=== PATIENT | female | born 1975 | race Caucasian/White ===

== ENCOUNTER 2021-06-24 16:30 | Emergency (ER) | payer BC, SELFPAY ==
[2021-06-24 17:26] VITALS: BP 148/108; PULSE 86; RESP 16; TEMP 36.9; O2SAT 98; BMI 17.9
[2021-06-24 17:45] LABS: MANUAL DIFF FLAG NO
[2021-06-24 17:47] LABS: Basophils Percent Auto 0.4 % (0-2); Eosinophils Absolute Auto 0.1 X10*3/uL (0.0-0.4); Eosinophils Percent Auto 0.8 % (0-4); Hematocrit 44.6 % (37.0-47.0); Hemoglobin 15.2 g/dl (12.0-16.0); Imm Gran Abs Auto 0.03 X10*3/uL (0.00-0.03); Imm Gran Pct Auto 0.3 % (0.0-0.4); Lymphocytes Absolute Auto 2.2 X10*3/uL (1.2-4.9); Lymphocytes Percent Auto 21.3 % (20-40); Mean Corpuscular HGB Conc 34.1 g/dl (31.0-35.0); Mean Corpuscular Hemoglobin 29.6 pg (27.0-33.0); Mean Corpuscular Volume 86.9 fL (80.0-98.0); Mean Platelet Volume 11.6 fL (9.4-12.3); Monocytes Absolute Auto 0.7 X10*3/uL (0.1-1.2); Monocytes Percent Auto 6.8 % (2-11); Neutrophils Absolute Auto 7.2 x10*3/uL (2.0-8.3); Neutrophils Percent Auto 70.4 % (45-73); Platelet Count 187 X10*3/uL (160-400); Red Blood Count 5.13 X10*6/uL (4.20-5.50); Red Cell Distribution Width 12.8 % (11.0-16.0); White Blood Count 10.2 X10*3/uL (4.8-10.8)
[2021-06-24 17:49] LABS: Appearance Urine CLEAR; Color Urine STRAW; Glucose Urine UA NEG (NEG); Leukocyte Esterase Urine NEG (NEG); Nitrite Urine NEG (NEG); PH 6.5 (5.0-8.0); Specific Gravity - Urine <= 1.005 (1.005-1.025); Urine Blood NEG (NEG); Urine Ketones NEG (NEG); Urine Protein NEG (NEG-TRACE)
[2021-06-24 18:04] LABS: Anion Gap 11 (12-20); Blood Urea Nitrogen 9 mg/dL (9-16); Calcium 9.7 mg/dL (8.4-10.2); Carbon Dioxide 24 mmol/L (22-29); Chloride 108 mmol/L (96-108); Creatinine Clr Calc Pharmacy 64.9; Estimated Glomerular Filt Rate > 60; Glucose Random 107 mg/dL (60-115); Potassium 3.8 mmol/L (3.3-5.1); Sodium 139 mmol/L (135-145)
[2021-06-24 18:20] LABS: Bacteria Urine 1+ /LPF; RBC Urine 0 /HPF (0); Squamous Epithelial Cell Urine 2+ /LPF; WBC Urine 0 /HPF (0-4)
--- NOTE | 2021-06-24 20:14 | ED.DIZZY ---
HPI - Dizziness General Chief Complaint: Dizziness Stated Complaint: light headed Time Seen by Provider: 06/24/21 20:14 Source: patient Mode of arrival: ambulatory Limitations: no limitations History of Present Illness HPI Narrative: Patient complaining of dizziness since morning worse when turning her head to the left side history with nausea no vomiting was light off balance also felt dull pain in the left ear no fever no chills patient does have history of dizziness very mild in the past but not like this. No headache no fever no chills Related Data Previous Rx's Medication Instructions Recorded meclizine 25 mg tablet 25 mg PO TID PRN #20 tab 06/24/21 Allergies Allergy/AdvReac Type Severity Reaction Status Date / Time ceftriaxone [From ROCEPHIN] Allergy Intermediate ANAPHYLAXIS Verified 06/24/21 20:31 Review of Systems Review of Systems: Yes all other systems are reviewed and are negative [facility] Social History Social History Advance Directives: No Advance Directives Information Provided: Yes Patient : No Physical Exam Vital Signs: Vital Signs: Last Vital Signs Temp 99 F 06/24/21 20:32 Pulse 76 06/24/21 20:32 Resp 18 06/24/21 20:32 BP 129/80 06/24/21 20:32 Pulse Ox 97 06/24/21 20:32 BMI result Body Mass Index 17.9 Appearance: Alert. Oriented X3. No acute distress. Eyes: PERRLA, + Nystagmus with fast movement to the right ENT: Pharynx normal. Oral Mucosa moist Neck: Normal inspection. Neck supple. CVS: Normal heart rate and rhythm. Pulses normal. Respiratory: No respiratory distress. Equal air entry bilateral, Abdomen: Soft and nontender. Bowel sounds are present, Skin: Skin warm and dry. Normal skin color. Normal skin turgor. Extremities: No lower extremity edema. No calf tenderness Neuro: Oriented X 3. No motor deficit. No sensory deficit.No cerebellar signs , cranial nerves II-XII intact MDM - Dizziness MDM Narrative Medical decision making narrative: Patient with vertigo clinically peripheral in etiology patient improved on meclizine lab workup stable will discharge patient home on meclizine with precautions Lab Data Attestation: I reviewed the patient's lab results. Result diagrams: 06/24/21 17:39 06/24/21 17:39 Labs: Lab Results 06/24/21 06/24/21 06/24/21 Range/Units 17:39 17:39 17:43 WBC 10.2 (4.8-10.8) X10*3/uL RBC 5.13 (4.20-5.50) X10*6/uL Hgb 15.2 (12.0-16.0) g/dl Hct 44.6 (37.0-47.0) % MCV 86.9 (80.0-98.0) fL MCH 29.6 (27.0-33.0) pg MCHC 34.1 (31.0-35.0) g/dl RDW 12.8 (11.0-16.0) % Plt Count 187 (160-400) X10*3/uL MPV 11.6 (9.4-12.3) fL Immature Gran % (Auto) 0.3 (0.0-0.4) % Neut % (Auto) 70.4 (45-73) % Lymph % (Auto) 21.3 (20-40) % Dukes % (Auto) 6.8 (2-11) % Eos % (Auto) 0.8 (0-4) % Baso % (Auto) 0.4 (0-2) % Lymph # (Auto) 2.2 (1.2-4.9) X10*3/uL Dukes # (Auto) 0.7 (0.1-1.2) X10*3/uL Eos # (Auto) 0.1 (0.0-0.4) X10*3/uL Baso # (Auto) 0.0 (0.0-0.2) X10*3/uL Abs Immat Gran (auto) 0.03 (0.00-0.03) X10*3/uL Absolute Neuts (auto) 7.2 (2.0-8.3) x10*3/uL Absolute Nucleated RBC 0.000 (0.0-0.012) X10*3/uL Nucleated RBC % (auto) 0.0 (0.0-0.2) /100WBC Sodium 139 (135-145) mmol/L Potassium 3.8 (3.3-5.1) mmol/L Chloride 108 (96-108) mmol/L Carbon Dioxide 24 (22-29) mmol/L Anion Gap 11 L (12-20) BUN 9 (9-16) mg/dL Creatinine 0.82 (0.5-1.4) mg/dL Estim Creat Clear Calc 64.9 Estimated GFR > 60 Random Glucose 107 (60-115) mg/dL Calcium 9.7 (8.4-10.2) mg/dL Urine Color STRAW Urine Appearance CLEAR Urine pH 6.5 (5.0-8.0) Ur Specific Lincoln <= 1.005 (1.005-1.025) Urine Protein NEG (NEG-TRACE) MG/DL Urine Glucose (UA) NEG (NEG) MG/DL Urine Ketones NEG (NEG) MG/DL Urine Blood NEG (NEG) Urine Nitrite NEG (NEG) Ur Leukocyte Esterase NEG (NEG) Urine RBC 0 (0) /HPF Urine WBC 0 (0-4) /HPF Ur Squamous Epith Cells 2+ /LPF Urine Bacteria 1+ /LPF Discharge Plan Discharge Clinical Impression: Benign paroxysmal positional vertigo Qualifiers: Laterality: left Qualified Code(s): H81.12 - Benign paroxysmal vertigo, left ear Patient Disposition: Home, Self-Care Instructions: Benign Paroxysmal Positional Vertigo (ED) Additional Instructions: Rest at home caution while walking/driving Take medication as prescribed every 8 hours as needed for dizziness Prescriptions: New meclizine 25 mg tablet 25 mg PO TID PRN (Reason: dizziness) Qty: 20 RF: 0 Interventions: ED Discharge Assessment Last Done: 06/24/21 21:43 Discharge Date/Time: 06/24/21 21:44
[2021-06-24 20:32] VITALS: BP 129/80; PULSE 76; RESP 18; TEMP 37.2; O2SAT 97
[2021-06-24] MEDS: Meclizine HCl 25 MG TABLET 50 MG PO (20:37)
== END 2021-06-24 21:44 | disposition home or self-care (01) ==
PROVIDERS: Emergency Medicine; Emergency Provider Internal Medicine
DX: H81.12 Benign paroxysmal vertigo, left ear (principal)
CPT/HCPCS: 36415; 80048; 81001; 85025; 99283; 99284

== ENCOUNTER 2022-05-02 10:03 | Emergency (ER) | payer BC, SELFPAY ==
[2022-05-02 10:07] VITALS: BP 148/89; PULSE 94; RESP 18; TEMP 36.6; O2SAT 97
== END 2022-05-02 12:16 | disposition left against medical advice (07) ==
PROVIDERS: Emergency Provider Emergency Medicine
DX: R00.2 Palpitations (principal); R07.9 Chest pain, unspecified
CPT/HCPCS: 99281

== ENCOUNTER 2024-03-29 10:29 | Emergency (ER) | payer OTHER, SELFPAY ==
--- NOTE | ~2024-03-29 | CT_ITS ---
EXAMINATION: CT HEAD WITHOUT CONTRAST/STROKE ALERT CLINICAL INFORMATION: Ataxia, bilateral blurring of vision for 1 hour. COMPARISON: None available. TECHNIQUE: Contiguous axial imaging was performed from the skull-base to vertex without intravenous administration of contrast. This CT examination was performed using dose optimization techniques as appropriate, variously including the following: *Automated exposure control *Adjustment of mA and/or kV according to patient size (this includes techniques or standardized protocols for targeted exams where dose is matched to indication/reason for exam; i.e. extremities or head) *Use of iterative reconstruction technique DLP: 733 mGy-cm FINDINGS: Ventricles, sulci and cisterns are normal. There is no midline shift, no abnormal intra- or extra- axial fluid accumulation. Painter and white matter differentiation is normal. Bone window images show no evidence of skull fracture. CT/CT head for stroke IMPRESSION: 1. Normal CT scan of brain. 2. No intracranial hemorrhage or skull fracture is seen. 3. No evidence of space occupying lesion could be found. 4. The current plain CT scan of the brain shows no diagnostic evidence of acute cerebral infarction. This critical result was discussed with Dr. Madiha Jackson on 03/29/2024 at 1156 hours and it was ascertained that the content and urgency of this report was understood at the time of direct communication. Electronically signed by: Ekta Zhang MD 03/29/2024 11:58 AM EDT
--- NOTE | ~2024-03-29 | CT_ITS ---
EXAMINATION: CTA NECK WITH CONTRAST (STROKE) CTA BRAIN WITH CONTRAST (STROKE) CLINICAL INFORMATION: Suspect acute stroke. Assess for major vessel occlusion. Please call report. COMPARISON: None available. TECHNIQUE: CTA of the head and neck was performed in the axial plane from the mediastinum to the skull vertex using 70 mL Omnipaque 350 intravenous contrast. Delayed postcontrast imaging of the brain was obtained. Additional reformatted multiplanar images including maximum intensity projection MIP images are generated on the CT workstation. This CT examination was performed using dose optimization techniques as appropriate, variously including the following: *Automated exposure control *Adjustment of mA and/or kV according to patient size (this includes techniques or standardized protocols for targeted exams where dose is matched to indication/reason for exam; i.e. extremities or head) *Use of iterative reconstruction technique DLP: 1494 mGy-cm FINDINGS: The degree of stenosis determined by criteria similar to NASCET. Brain: The brain parenchyma is normal in morphology. Painter-white matter interface is preserved. There is no acute territorial infarct or regional oligemia. No extra-axial fluid collections, space-occupying process, mass effect or pathologic intracranial enhancement are identified. The ventricular system and subarachnoid spaces are within normal limits without hydrocephalus. There is opacification of the major dural venous sinuses with hypoplasia of the right transverse and sigmoid sinus within the limitations of an arterial technique. The calvarium is intact. The visualized airspaces are grossly unopacified. Chest CTA: The thoracic aortic arch is normal in caliber with a 2-vessel arch configuration normal variant of a bovine origin of the left common carotid artery. There is somewhat limited visualization of the brachiocephalic vessels particularly on the right related to dense contrast material in the right brachiocephalic and subclavian veins. Within these limitations, the brachiocephalic vessels are widely patent. The vertebral arteries are codominant and widely patent at their origins. Left subclavian artery is patent and normal in caliber. Proximal right subclavian artery is patent and normal in caliber. Distal right subclavian artery is obscured. Neck CTA: The vertebral arteries are codominant and demonstrate normal caliber with smooth contours throughout the neck. Both common carotid arteries, carotid bifurcations, internal and external carotid arteries are smoothly contoured, normal in caliber with no significant plaque formation, significant focal stenosis or segmental occlusion. Brain CTA: The intracranial ICAs are patent and normal in caliber. The A1 segments are patent with the right being dominant. The anterior communicating artery is not well visualized suspect an azygos anterior cerebral artery, normal variant. The M1 segments, MCA bifurcations and M2 branches are patent and normal in caliber. The intradural vertebral arteries are patent, codominant, smoothly contoured and normal in caliber. The posterior inferior cerebellar arteries are visualized bilaterally. The superior cerebellar and posterior cerebral arteries are patent and normal in caliber. The posterior communicating arteries are not clearly visualized. Neck/chest nonvascular images: No acute process. Skeletal: Bony structures appear grossly intact. Left-sided TMJ arthropathy noted. CT/CT angio head neck stroke IMPRESSION: 1. No acute intracranial process. No evidence for acute territorial infarct, large vessel occlusion, significant focal stenosis, mass lesion or pathologic intracranial enhancement. 2. The distal right subclavian artery is not well visualized but the proximal right subclavian artery is widely patent. 3. Unremarkable delayed contrast-enhanced CT of the brain. 4. Incidental note is made of a normal variant azygos anterior cerebral artery, normal variant of a bovine origin of the left common carotid artery and probable hypoplastic right transverse and sigmoid sinus. The above findings were conveyed directly to Kristy Sol NP at 12:38 PM on 03/29/2024. Electronically signed by: Andrea Vizcaino MD 03/29/2024 12:49 PM EDT RP
[2024-03-29 10:35] VITALS: BP 134/86; PULSE 85; RESP 16; TEMP 37; O2SAT 98; BMI 31.0
--- NOTE | 2024-03-29 10:46 | PC.NURSE ---
Bunny ALMONTE in triage to evaluate pt, NIHSS 0.
[2024-03-29 10:51] VITALS: BP 149/81; PULSE 83; RESP 15; TEMP 36.9; O2SAT 99
--- NOTE | 2024-03-29 10:58 | ED.NEUROSD ---
HPI - Neuro Symptoms/Deficit General Chief Complaint: Neuro Symptoms/Deficit Stated Complaint: Blurred vision/Off balance Time Seen by Provider: 03/29/24 10:58 Source: patient and family Mode of arrival: ambulatory Limitations: no limitations History of Present Illness HPI Narrative: Patient is a 48 who presents to the emergency department for evaluation. She reports that for the past few months she has been experiencing a diffuse fullness in her head with intermittent pain to her left ear. She reports that she typically has to block both of her nostrils and blow out to begin to feel better. She states that 4 days ago she presented to [facility] emergency department, by her account? They expressed concern for a stroke and we are going to do a CT until they lifted her nose and noticed that it was red and ultimately decided that she did not need the CT and offered her a nasal spray. She states that she did become very anxious at this time and left the department. She reports her symptoms have persisted. Today approximately 1 hour prior to arrival she was resting watching television when suddenly she developed significant blurred vision to both eyes and dizziness. She states that she feels off balance when she was attempting to walk. She has intense pressure within her head. She does admit to a history of vertigo, she states that when this head pressure sensation for started she attempted to take a dose of her ?vertigo medication? and states that she felt significantly worse after an ultimately had to lie down for a nap and has not since taken it. Related Data Previous Rx's ?Medication ?Instructions ?Recorded meclizine 25 mg tablet 25 mg PO TID PRN dizziness #20 tabs 06/24/21 Allergies Allergy/AdvReac Type Severity Reaction Status Date / Time ceftriaxone [From ROCEPHIN] Allergy Intermediate ANAPHYLAXIS Verified 03/29/24 10:41 From ROCEPHIN Allergy Mild SWELLING Uncoded 04/28/23 11:58 Review of Systems Review of Systems: Yes all other systems are reviewed and are negative PMFSH Past Medical History Attestation statement: The following information was validated with the patient. Source: old records reviewed Social History Social History (System 04/28/23 @ 11:58 by Nicolasa Hollis) Advance Directives: No Advance Directives Information Provided: Yes Physical Exam Vital Signs: Vital Signs: Last Vital Signs Temp 0 F L 03/29/24 16:28 Pulse 0 L 03/29/24 16:28 Resp 0 L 03/29/24 16:28 BP 00/00 L 03/29/24 16:28 Pulse Ox 0 L 03/29/24 16:28 O2 Del Method Room Air 03/29/24 16:28 BMI result Body Mass Index 31.0 Appearance: Alert.?Oriented to person, place and time. No acute distress.?Normal affect. Eyes: Pupils equal, round and reactive to light.? EOMI. No nystagmus. ENT: Pharynx normal.?? Neck: Normal inspection.? Neck supple.?? CVS: Heart sounds normal. Normal heart rate and rhythm.? Pulses normal.?? Respiratory: No respiratory distress.? Lung sounds clear to auscultation bilaterally?? Abdomen: Soft and non-tender. Normoactive bowel sounds. Skin: Skin warm and dry.? Normal skin color.? Extremities: No lower extremity edema.? No calf ttp? Neuro: No focal neurological deficit observed, CN II-XII intact, normal sensory observed, normal coordination observed. Level of consciousness: Appropriate for age. Motor strength: Proximal right upper extremity 5 /5, distal right upper extremity 5 /5, proximal left upper extremity 5 /5, distal left upper extremity 5 /5, right lower extremity 5 /5, left lower extremity 5 /5.? Speech: Normal, Gait: mild ataxia, [id number] test: Normal, [id number] test: Normal. Course Reevaluation(s) Reevaluation #1: CT head CT a head and neck are negative no evidence of CVA. On re-evaluation she reports resolution of the blurred vision. Her gait is no longer ataxic. High clinical suspicion for BPPV as etiology for her symptoms versus TIA. 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 On evaluation she does have mild effusion of the inner ear but no evidence of acute otitis media. No orthostatic hypotension. Visual acuity is 20/30 bilaterally without deficit. Reevaluation #2: On re-evaluation with patient, she reports feeling well but continues to have an intermittent fullness to the left side of her head. Reports she has had no returned blurry vision. In the middle of us speaking patient reports that the movement of my body is now beginning to make her feel ?dizzy? but she is unable to describe what this entails she states that she feels ?sick? and not right in her head. She denies a near passing out sensation, denies having that head pressure she was previously experiencing and she had sudden return of her blurred vision, she was not wearing her reading glasses at that time. However when applying them the blurriness completely resolves. Will trial treatment at this time with meclizine and Ativan. Time: 14:28 Reevaluation #3: Patient is requesting discharge at this time, she has no focal neurological deficits, ambulatory with a steady gait, no vision difficulties. we discussed outpatient follow-up with ENT/Neurology. All questions answered Time: 16:18 Medications Administered Discontinued Medications Generic Name Dose Route Start Last Admin Trade Name Rogerq PRN Reason Stop Dose Admin Sodium Chloride 1,000 mls @ 999 mls/hr 03/29/24 13:15 03/29/24 14:42 Ns IV 03/29/24 14:15 Infused .Q1H1M JONATHAN Infusion Iohexol 70 ml 03/29/24 12:09 03/29/24 12:10 Iohexol 350 Mg/Ml 75 Ml Infus..Btl IV 03/29/24 12:10 70 ml ONCE ONE Administration Lorazepam 0.5 mg 03/29/24 14:26 03/29/24 14:47 Lorazepam 0.5 Mg Tablet PO 03/29/24 14:27 0.5 mg ONCE ONE Administration Meclizine HCl 25 mg 03/29/24 14:26 03/29/24 14:47 Meclizine Hcl 25 Mg Tablet PO 03/29/24 14:27 25 mg ONCE ONE Administration Medical Decision Making Medical Decision Making MDM Narrative: Patient is a 48-year-old female with past medical history of BPPV presenting for new onset blurred vision with persistent ?head fullness? in feeling off balance. Last known well time 09:30 today. 11:25 - patient was very anxious at the time of my initial evaluation, difficult to ascertain a clear history. Patient has been presented to bedside and she was able to calm some so that I can obtain a more thorough history. Stroke alert called at this time. Plan to also obtain visual acuity, although of note when doing [id number] test she is able to lift directly forward at me and still have accuracy with testing in the periphery. Differential Diagnosis Differential Diagnoses: The differential diagnosis associated with the presentation includes (Posterior circulation stroke, CVA, tension headache, vestibular neuritis, BPPV, pseudotumor cerebri) Admission/Observation Consideration of admission/observation: Escalation of care including admission/observation considered Lab Data MDM Lab Attestation statement: I reviewed the patient's lab results. CBC is without leukocytosis, left shift, or anemia. Has a mild thrombocytopenia; 157,000. No electrolyte derangement. No JUANA. Random glucose of 127. LFTs within normal range. High sensitive troponin below detectable limits. Viral panel negative. 03/29/24 11:31 03/29/24 11:31 Labs: Lab Results 03/29/24 03/29/24 Range/Units 11:31 12:04 WBC 7.2 (4.8-10.8) X10*3/uL RBC 5.16 (4.20-5.50) X10*6/uL Hgb 15.9 (12.0-16.0) g/dl Hct 45.0 (37.0-47.0) % MCV 87.2 (80.0-98.0) fL MCH 30.8 (27.0-33.0) pg MCHC 35.3 H (31.0-35.0) g/dl RDW 12.8 (11.0-16.0) % Plt Count 157 L (160-400) X10*3/uL MPV 11.3 (9.4-12.3) fL Immature Gran % (Auto) 0.4 (0.0-0.4) % Neut % (Auto) 62.1 (45-73) % Lymph % (Auto) 26.1 (20-40) % Starke % (Auto) 9.3 (2-11) % Eos % (Auto) 1.1 (0-4) % Baso % (Auto) 1.0 (0-2) % Lymph # (Auto) 1.9 (1.2-4.9) X10*3/uL Starke # (Auto) 0.7 (0.1-1.2) X10*3/uL Eos # (Auto) 0.1 (0.0-0.4) X10*3/uL Baso # (Auto) 0.1 (0.0-0.2) X10*3/uL Abs Immat Gran (auto) 0.03 (0.00-0.03) X10*3/uL Absolute Neuts (auto) 4.5 (2.0-8.3) x10*3/uL Absolute Nucleated RBC 0.000 (0.0-0.012) X10*3/uL Nucleated RBC % (auto) 0.0 (0.0-0.2) /100WBC PT 11.0 L (11.1-13.3) SEC INR 0.9 (0.9-1.1) APTT 31.8 (26.0-36.8) SEC Sodium 141 (135-145) mmol/L Potassium 3.7 (3.3-5.1) mmol/L Chloride 106 (96-108) mmol/L Carbon Dioxide 27 (22-29) mmol/L Anion Gap 12 (12-20) BUN 10 (9-16) mg/dL Creatinine 0.84 (0.5-1.4) mg/dL Estim Creat Clear Calc 83.0 Estimated GFR > 60 POC Glucose 103 (60-115) mg/dL Random Glucose 127 H (60-115) mg/dL Calcium 10.0 (8.4-10.2) mg/dL Magnesium 2.1 (1.6-2.6) mg/dL Total Bilirubin 0.7 (0.0-1.0) mg/dL AST 13 (5-31) U/L ALT 12 (0-31) U/L Alkaline Phosphatase 74 (39-117) U/L Troponin I High Sens < 2.7 (<3.5-17.0) ng/L Total Protein 7.2 (6.5-8.0) g/dL Albumin 4.5 (3.5-5.0) g/dL Triglycerides 121 (<150) mg/dL Cholesterol 196 (<200) mg/dL LDL Cholesterol, Calc 119 H (<100) mg/dL HDL Cholesterol 53 (>40) mg/dL Lipase 33 (8-78) U/L Influenza Type A (PCR) NEGATIVE (Negative) Influenza Type B (PCR) NEGATIVE (Negative) RSV RNA Qual (PCR) NEGATIVE (Negative) SARS-CoV-2 RNA (RT-PCR) NEGATIVE (Negative) Independent Interpretation I performed an independent interpretation of an: EKG and CT Scan (No ICH, no infarct) Interpretation: Rate: 65 Rhythm:? Normal sinus rhythm Normal P waves.? Normal OMEGA.?? Normal QRS complex.?? ST T wave :??No ST elevation, no ST depression, T-wave inversion V1-V3 qTC: 422 prior studies:? No prior available for review The study has been interpreted contemporaneously by me. Radiology Impression Discussion of test interpretation with radiology: I have reviewed the radiologist's reading. Radiologist Impression: CT/CT head for stroke IMPRESSION: 1. Normal CT scan of brain. 2. No intracranial hemorrhage or skull fracture is seen. 3. No evidence of space occupying lesion could be found. 4. The current plain CT scan of the brain shows no diagnostic evidence of acute cerebral infarction. CT/CT angio head neck stroke IMPRESSION: 1. No acute intracranial process. No evidence for acute territorial infarct, large vessel occlusion, significant focal stenosis, mass lesion or pathologic intracranial enhancement. 2. The distal right subclavian artery is not well visualized but the proximal right subclavian artery is widely patent. 3. Unremarkable delayed contrast-enhanced CT of the brain. 4. Incidental note is made of a normal variant azygos anterior cerebral artery, normal variant of a bovine origin of the left common carotid artery and probable hypoplastic right transverse and sigmoid sinus. Independent Historian Clinical information obtained from an independent historian. History obtained from or confirmed by: Spouse External Record Review External record reviewed: Outpatient record Prescription Management I considered prescription management with: Other (See course narrative) NIH Stroke Scale Time: 11:25 Level of Consciousness: Alert Level of Consciousness Questions: Answers both questions correctly Level of Consciousness Commands: Performs both tasks correctly Best Gaze: Normal Visual: No visual loss Facial Palsy: Normal Motor Arm (Right): No drift Motor Arm (Left): No drift Motor Leg (Right): No drift Motor Leg (Left): No drift Limb Ataxia: Present in two limbs Sensory: Normal Best Language: No aphasia Dysarthia: Normal Extinction and Inattention: No abnormality Score: 2 Critical Care Time Critical Care Time Critical Care Time: Yes Total Critical Care Time: 55 Attestation: I personally attest to this critical care time spent taking care of the patient exclusive of all other billable procedures was [id number] minutes including initial evaluation of patient, ordering tests, CT interpretation, stroke alert, medical consultation, documentation, re-evaluation. Discharge Plan Discharge Clinical Impression: Vertigo, Dizziness Patient Disposition: Home, Self-Care Instructions: Vertigo (ED), Dizziness (ED) Additional Instructions: Use meclizine 3 times daily every 8 hours as needed for symptoms. I do think it would be helpful for you to follow-up for further evaluation including with ENT/Neurology. I provided their contact information, you may call their office Monday morning. You may return to emergency department any new or worsening symptoms or concerns. Prescriptions: No Action meclizine 25 mg tablet 25 mg PO TID PRN (Reason: dizziness) Qty: 20 0RF Referrals: [facility] [place] [facility] [Provider Group] Derick Womack [Physician] - Interventions: ED Discharge Assessment Last Done: 03/29/24 16:28 Discharge Date/Time: 03/29/24 16:30 Print Language: [place] Helen[place]
--- NOTE | 2024-03-29 11:12 | ECG_ITS ---
Test Reason : DIZZINESS Blood Pressure : / mmHG Vent. Rate : 065 BPM Atrial Rate : 065 BPM P-R Int : 140 ms QRS Dur : 082 ms QT Int : 406 ms P-R-T Axes : 028 -25 029 degrees QTc Int : 422 ms Normal sinus rhythm Normal ECG No previous ECGs available Referred By: Kristy Sol Electronically Signed By:CHRIS BE
[2024-03-29 11:28] VITALS: BP 153/88; PULSE 81
[2024-03-29 11:30] VITALS: BP 153/93; PULSE 82
[2024-03-29 11:33] VITALS: BP 152/96; PULSE 85
[2024-03-29 11:44] LABS: MANUAL DIFF FLAG NO
[2024-03-29 11:46] LABS: Basophils Absolute Auto 0.1 X10*3/uL (0.0-0.2); Eosinophils Absolute Auto 0.1 X10*3/uL (0.0-0.4); Eosinophils Percent Auto 1.1 % (0-4); Hemoglobin 15.9 g/dl (12.0-16.0); Imm Gran Abs Auto 0.03 X10*3/uL (0.00-0.03); Imm Gran Pct Auto 0.4 % (0.0-0.4); Lymphocytes Absolute Auto 1.9 X10*3/uL (1.2-4.9); Lymphocytes Percent Auto 26.1 % (20-40); Mean Corpuscular HGB Conc 35.3 g/dl (31.0-35.0); Mean Corpuscular Hemoglobin 30.8 pg (27.0-33.0); Mean Corpuscular Volume 87.2 fL (80.0-98.0); Mean Platelet Volume 11.3 fL (9.4-12.3); Monocytes Absolute Auto 0.7 X10*3/uL (0.1-1.2); Monocytes Percent Auto 9.3 % (2-11); Neutrophils Absolute Auto 4.5 x10*3/uL (2.0-8.3); Neutrophils Percent Auto 62.1 % (45-73); Platelet Count 157 X10*3/uL (160-400); Red Blood Count 5.16 X10*6/uL (4.20-5.50); Red Cell Distribution Width 12.8 % (11.0-16.0); White Blood Count 7.2 X10*3/uL (4.8-10.8)
[2024-03-29 11:52] LABS: INTERNATIONAL NORM RATIO 0.9 (0.9-1.1)
[2024-03-29 11:55] LABS: Partial Thromboplastin Time 31.8 SEC (26.0-36.8); Stroke Lab Use COMPLETE
[2024-03-29 11:59] LABS: Alanine Aminotransferase 12 U/L (0-31); Albumin Level 4.5 g/dL (3.5-5.0); Alkaline Phosphatase 74 U/L (39-117); Anion Gap 12 (12-20); Aspartate Amino Transferase 13 U/L (5-31); Bilirubin Total 0.7 mg/dL (0.0-1.0); Blood Urea Nitrogen 10 mg/dL (9-16); Carbon Dioxide 27 mmol/L (22-29); Chloride 106 mmol/L (96-108); Estimated Glomerular Filt Rate > 60; Glucose Random 127 mg/dL (60-115); Lipase 33 U/L (8-78); Magnesium 2.1 mg/dL (1.6-2.6); Potassium 3.7 mmol/L (3.3-5.1); Sodium 141 mmol/L (135-145); Total Protein 7.2 g/dL (6.5-8.0)
[2024-03-29 12:00] LABS: Cholesterol 196 mg/dL (<200); HDL Cholesterol 53 mg/dL (>40); LDL Cholesterol Calculated 119 mg/dL (<100); Triglycerides 121 mg/dL (<150)
[2024-03-29] MEDS: iohexoL 350 MG/ML 75 ML INFUS..BTL 70 ML IV (12:10)
[2024-03-29 12:12] LABS: Glucose, Whole Blood 103 mg/dL (60-115)
[2024-03-29 12:12] LABS: Troponin-I High Sensitivity < 2.7 ng/L (<3.5-17.0)
[2024-03-29 12:23] LABS: Influenza A PCR NEGATIVE (Negative); Influenza B PCR NEGATIVE (Negative); Resp Syncy Virus RNA Qual PCR NEGATIVE (Negative); SARS COV2 PCR INHOUSE NEGATIVE (Negative)
[2024-03-29] MEDS: 0.9 % Sodium Chloride 1,000 ML 999 ML IV (13:21)
[2024-03-29] MEDS: Meclizine HCl 25 MG TABLET PO (14:47)
[2024-03-29] MEDS: LORazepam 0.5 MG TABLET PO (14:47)
[2024-03-29 16:28] VITALS: BP 00/00; PULSE 0; RESP 0; TEMP -17.7; TEMP 0; O2SAT 0
== END 2024-03-29 16:30 | disposition home or self-care (01) ==
PROVIDERS: Nurse Practitioner Family; Emergency Provider Emergency Medicine
DX: R42 Dizziness and giddiness (principal); H92.02 Otalgia, left ear; H53.8 Other visual disturbances; R27.0 Ataxia, unspecified; R29.702 NIHSS score 2; Z03.818 Encounter for observation for suspected exposure to other biological agents ruled out; Z79.899 Other long term (current) drug therapy
CPT/HCPCS: 0241U; 36415; 70450; 70496; 70498; 80053; 80061; 82947; 83690; 83735; 84484; 85025; 85610; 85730; 93005; 96360; 99284; Q9967

== ENCOUNTER 2024-06-18 05:32 | Emergency (ER) | payer OTHER, SELFPAY ==
--- NOTE | ~2024-06-18 | XR_ITS ---
EXAMINATION: XR CHEST CLINICAL INFORMATION: Persistent cough. COMPARISON: None available. TECHNIQUE: 2 views of the chest were obtained. FINDINGS: There is no gross pneumothorax. Heart size is normal. Streaky and patchy opacities at the left lung base. Faint streaky opacities in the right upper lung and possibly left lung apex. No significant pleural effusion. Mild levoscoliosis of the thoracic spine with mild degenerative changes. XR/XR chest 2V IMPRESSION: Streaky and patchy opacities at the left lung base. Faint streaky opacities in the right upper lung and possibly left lung apex. This study was presented today, June 18, 2024, for interpretation. Stat results provided at this time as requested by referring provider. Electronically signed by: Lupe Crocker MD 06/18/2024 09:01 AM [facility]
[2024-06-18 05:57] VITALS: BP 136/84; PULSE 103; RESP 20; TEMP 37.4; O2SAT 95; BMI 31.1
[2024-06-18 06:21] LABS: IDNOW Serial# 08D9AD1C; Strep A Nucleic Acid Negative (Negative)
[2024-06-18 06:54] LABS: Influenza A PCR NEGATIVE (Negative); Influenza B PCR NEGATIVE (Negative); Resp Syncy Virus RNA Qual PCR NEGATIVE (Negative); SARS COV2 PCR INHOUSE NEGATIVE (Negative)
--- NOTE | 2024-06-18 07:52 | ED.URI ---
HPI - URI/Sore Throat General Chief Complaint: Upper Respiratory Symptoms Stated Complaint: severe cough Time Seen by Provider: 06/18/24 07:52 Source: patient Mode of arrival: ambulatory Limitations: no limitations History of Present Illness ED Provider: APOLINAR MOON PA-C HPI Narrative: 49 year old female presents to the ED today for evaluation of sore throat and cough x9 days. Cough is nonproductive. She additionally reports hoarse voice which began yesterday. Endorses fevers (TMAX 101F). She has been taking Dayquil at home with last dose being this morning. She states that two of her coworkers have tested positive for strep throat. Admits that she quit smoking tobacco approx 1 day prior to onset of symptoms. Denies sputum production, sob, wheezing, chest pain, N/V, abd pain. Related Data Previous Rx's ?Medication ?Instructions ?Recorded meclizine 25 mg tablet 25 mg PO TID PRN dizziness #20 tabs 06/24/21 azithromycin 250 mg tablet See Rx Instructions PO .COMPLEX #6 06/18/24 tabs doxycycline monohydrate 100 mg 100 mg PO BID 7 days #14 caps 06/18/24 capsule Allergies Allergy/AdvReac Type Severity Reaction Status Date / Time ceftriaxone [From ROCEPHIN] Allergy Intermediate ANAPHYLAXIS Verified 06/18/24 05:58 From ROCEPHIN Allergy Mild SWELLING Uncoded 06/18/24 05:58 Review of Systems Review of Systems: Constitutional: No chills, fatigue, night sweats, weight changes, +fevers ENT/Mouth: No ear pain, hearing loss, nasal congestion, sinus pain, rhinorrhea, +sore throat, +cough, +hoarse voice Eyes: No eye pain, swelling, redness, vision changes, discharge Cardio: No chest pain, palpitations, CHILDERS, orthopnea, peripheral edema Pulm: No SOB, cough, sputum, wheezing, dyspnea, hemoptysis GI: No nausea, vomiting, hematemesis, abdominal pain, diarrhea, constipation, hematochezia, melena : No irregular bleeding, dysuria, frequency, urgency, hesitancy, hematuria, flank pain, urinary flow changes, urinary incontinence or retention MSK: No back pain, neck pain, joint pain, myalgias Skin: No lesions, rashes Neuro: No weakness, numbness, paresthesias, LOC, dizziness, headache Psych: No anxiety/panic, depression, SI/HI, AH/VH All other systems reviewed and are negative. [facility] Past Medical History Attestation statement: The following information was validated with the patient. Source: old records reviewed and nursing notes reviewed Social History Social History Advance Directives: No Advance Directives Information Provided: No Do you have a plan to hurt others: No Plan Physical Exam Vital Signs: Vital Signs: Last Vital Signs Temp 99.7 F 06/18/24 09:20 Pulse 91 06/18/24 09:20 Resp 18 06/18/24 09:20 BP 147/81 H 06/18/24 09:20 Pulse Ox 94 06/18/24 09:20 O2 Del Method Room Air 06/18/24 09:20 BMI result Body Mass Index 31.1 Tachycardic, low-grade temp of 99.3?F General: Well appearing, in no acute distress. Skin: Warm, dry, intact. No rashes or lesions. Head: Normocephalic, atraumatic. EENT: Hearing is intact b/l. Conjunctiva clear. PERRLA. Hoarse voice. Moist mucous membranes.? Neck: Supple without LAD. No meningeal signs or nuchal rigidity. Cardiac: Chest wall symmetric. RRR Lungs: Normal respiratory effort without accessory muscle use. CTA bilaterally. No rales, rhonchi, or wheezes.? Abdomen: Soft, non-tender, non-distended. no splenomegaly. Neuro: AOx3. Normal speech. Ambulating with steady gait. Psych: Appropriate mood and affect. Responds appropriately to questions. Course Course Course Narrative: Patient tested negative for COVID, flu, RSV, strep throat. Chest x-ray shows patchy opacities to left lower and right upper lobes. Concern for community-acquired pneumonia. Will send her home with prescriptions for azithromycin and doxycycline. Advised to continue Tylenol and ibuprofen for fever. Patient has remained stable throughout ED visit today. Discussed worrisome signs and symptoms and when to return to the ED. All questions answered at this time. Patient is agreeable with disposition and stable for discharge. Medications Administered Discontinued Medications Generic Name Dose Route Start Last Admin Trade Name Freq PRN Reason Stop Dose Admin Acetaminophen 975 mg 06/18/24 08:01 06/18/24 08:20 Acetaminophen 325 Mg Tablet PO 06/18/24 08:02 975 mg ONCE ONE Administration Dexamethasone Sodium Phosphate 10 mg 06/18/24 08:01 06/18/24 08:20 Dexamethasone Sod Phosphate 10 Mg/Ml Vial IVPUSH 06/18/24 08:02 10 mg ONCE ONE Administration Medical Decision Making Medical Decision Making [facility] Narrative: 49 year old female presents to the ED today for evaluation of sore throat and cough x9 days. Tachycardic to 103. Low-grade fever of 99.3F (took OTC antipyretic LADLE PULLER). She is nontoxic appearing in no acute distress. Voice is hoarse. Posterior oropharynx is erythematous without tonsillar edema or exudates. No peritonsillar masses. Uvula midline. Controlling secretions and speaking complete sentences. hoarse voice. Skin warm, dry, intact. No rashes. Bilateral EACs and TMs WNL. No meningeal signs or nuchal rigidity. Differential diagnosis includes viral syndrome, strep throat, bronchitis, pneumonia Plan for viral and strep swabs, chest x-ray, re-evaluation. Differential Diagnosis Differential Diagnoses: The differential diagnosis associated with the presentation includes As above Admission/Observation Not indicated Lab Data [facility] Lab Attestation statement: I reviewed the patient's lab results. As above Labs: Lab Results 06/18/24 Range/Units 06:05 Influenza Type A (PCR) NEGATIVE (Negative) Influenza Type B (PCR) NEGATIVE (Negative) RSV RNA Qual (PCR) NEGATIVE (Negative) SARS-CoV-2 RNA (RT-PCR) NEGATIVE (Negative) S. pyogenes GrpA AMBROCIO Negative (Negative) Independent Interpretation I performed an independent interpretation of an: Plain X-Ray Interpretation: Chest x-ray with opacities to left lung case Radiology Impression Discussion of test interpretation with radiology: I have reviewed the radiologist's reading. Radiologist Impression: EXAMINATION: XR CHEST CLINICAL INFORMATION: Persistent cough. COMPARISON: None available. TECHNIQUE: 2 views of the chest were obtained. FINDINGS: There is no gross pneumothorax. Heart size is normal. Streaky and patchy opacities at the left lung base. Faint streaky opacities in the right upper lung and possibly left lung apex. No significant pleural effusion. Mild levoscoliosis of the thoracic spine with mild degenerative changes. XR/XR chest 2V IMPRESSION: Streaky and patchy opacities at the left lung base. Faint streaky opacities in the right upper lung and possibly left lung apex. This study was presented today, June 18, 2024, for interpretation. Stat results provided at this time as requested by referring provider. Electronically signed by: Lupe Crocker MD 06/18/2024 09:01 AM EST External Record Review External record reviewed: Inpatient record Prescription Management I considered prescription management with: Pain Medication (Tylenol, Motrin) and Antibiotic (Doxycycline, azithromycin) Chronic Conditions Patient?s care impacted by: Other (Smoker) Social Determinants Patient?s care significantly limited by Social Determinants of Health including: Other Social Determinant of Health Critical Care Time Critical Care Time Critical Care Time: No Discharge Plan Discharge Clinical Impression: CAP (community acquired pneumonia) Patient Disposition: Home, Self-Care Instructions: Community Acquired Pneumonia (ED), Pneumonia (ED) Additional Instructions: You tested negative for covid, flu, rsv, and strep throat. Your chest xray shows findings consistent with pneumonia within your left lower lung and right upper lung. Treatment for this is with antibiotics. Doxycycline and azithromycin have been sent to your pharmacy for treatment. Take Tylenol and Motrin at home for fever/body aches. Please follow up with primary care provider. You will need a repeat chest x-ray in 3-4 weeks outpatient to confirm resolution of pneumonia. Return with new or worsening symptoms. In the case of an emergency call 911. Prescriptions: New doxycycline monohydrate 100 mg capsule 100 mg PO BID 7 Days Qty: 14 0RF azithromycin 250 mg tablet See Rx Instructions .ROUTE .COMPLEX Qty: 6 0RF Rx Instructions: For 250 mg dose pack: take 500 mg today (day 1), then 250 mg for 4 days (days 2-5) No Action meclizine 25 mg tablet 25 mg PO TID PRN (Reason: dizziness) Qty: 20 0RF Stand Alone Forms: Work/School Release Interventions: ED Discharge Assessment Last Done: 06/18/24 09:20 Discharge Date/Time: 06/18/24 09:22 Print Language: S[place]an
[2024-06-18] MEDS: Acetaminophen 325 MG TABLET 975 MG PO (08:20)
[2024-06-18] MEDS: dexAMETHasone sod phosphate 10 MG/ML VIAL IVPUSH (08:20)
[2024-06-18 09:20] VITALS: BP 147/81; PULSE 91; RESP 18; TEMP 37.6; O2SAT 94
== END 2024-06-18 09:22 | disposition home or self-care (01) ==
PROVIDERS: Emergency Provider Emergency Medicine
DX: J18.9 Pneumonia, unspecified organism (principal); R05.9 Cough, unspecified; J02.9 Acute pharyngitis, unspecified; R50.9 Fever, unspecified; Z03.818 Encounter for observation for suspected exposure to other biological agents ruled out
CPT/HCPCS: 0241U; 71046; 87651; 96374; 99283; 99284; J1100

== ENCOUNTER 2024-06-29 07:22 | Emergency (ER) | payer OTHER, SELFPAY ==
--- NOTE | ~2024-06-29 | XR_ITS ---
EXAMINATION: XR CHEST CLINICAL INFORMATION: repeat post pnu COMPARISON: None available. TECHNIQUE: 2 views of the chest were obtained. FINDINGS: No significant abnormality is noted involving the heart, lungs, mediastinum, bony thorax or soft tissues. XR/XR chest 2V IMPRESSION: Unremarkable chest exam. Electronically signed by: Fer Farmer MD 06/29/2024 08:28 AM [facility]
[2024-06-29 07:25] VITALS: BP 139/77; PULSE 87; RESP 16; TEMP 37; O2SAT 98
[2024-06-29 07:44] LABS: MANUAL DIFF FLAG NO
[2024-06-29 07:46] LABS: Basophils Absolute Auto 0.1 X10*3/uL (0.0-0.2); Basophils Percent Auto 0.8 % (0-2); Eosinophils Absolute Auto 0.2 X10*3/uL (0.0-0.4); Eosinophils Percent Auto 1.8 % (0-4); Hematocrit 40.6 % (37.0-47.0); Hemoglobin 14.1 g/dl (12.0-16.0); Imm Gran Abs Auto 0.05 X10*3/uL (0.00-0.03); Imm Gran Pct Auto 0.5 % (0.0-0.4); Lymphocytes Absolute Auto 2.5 X10*3/uL (1.2-4.9); Mean Corpuscular HGB Conc 34.7 g/dl (31.0-35.0); Mean Corpuscular Hemoglobin 30.1 pg (27.0-33.0); Mean Corpuscular Volume 86.6 fL (80.0-98.0); Mean Platelet Volume 11.2 fL (9.4-12.3); Monocytes Absolute Auto 0.7 X10*3/uL (0.1-1.2); Monocytes Percent Auto 6.8 % (2-11); Neutrophils Absolute Auto 6.5 x10*3/uL (2.0-8.3); Neutrophils Percent Auto 65.1 % (45-73); Platelet Count 162 X10*3/uL (160-400); Red Blood Count 4.69 X10*6/uL (4.20-5.50); Red Cell Distribution Width 12.7 % (11.0-16.0)
[2024-06-29 08:13] LABS: Anion Gap 13 (12-20); Blood Urea Nitrogen 11 mg/dL (9-16); Calcium 9.1 mg/dL (8.4-10.2); Carbon Dioxide 23 mmol/L (22-29); Chloride 108 mmol/L (96-108); Creatinine Clr Calc Pharmacy 86.7; Estimated Glomerular Filt Rate > 60; Glucose Random 101 mg/dL (60-115); Potassium 4.1 mmol/L (3.3-5.1); Sodium 140 mmol/L (135-145)
--- NOTE | 2024-06-29 08:18 | ED_ITS ---
HPI - URI/Sore Throat General Chief Complaint: Upper Respiratory Symptoms Stated Complaint: pneumonia not getting better Time Seen by Provider: 06/29/24 07:35 Source: patient, RN notes reviewed and old records reviewed Mode of arrival: ambulatory History of Present Illness ED Provider: Susan Robertson PA-C HPI Narrative: 49-year-old female with a past medical history of pneumonia evaluated in our ED on 06/18/2024 finish course of Doxycycline/Azithromycin presenting to the ED complaining of continued congestion, sore throat, head pressure, rhinorrhea, erythematous eyes and fatigue x few weeks. States completed previously prescribed antibiotics with improvement of cough and SOB. Admits has been using her children's pink eye medication. Denies vision change or loss, crusting/eye discharge or itching. Denies fever, chills, abdominal pain, nausea/vomiting, CP/SOB or recent travel. Related Data Previous Rx's ?Medication ?Instructions ?Recorded meclizine 25 mg tablet 25 mg PO TID PRN dizziness #20 tabs 06/24/21 azithromycin 250 mg tablet See Rx Instructions PO .COMPLEX #6 06/18/24 tabs doxycycline monohydrate 100 mg 100 mg PO BID 7 days #14 caps 06/18/24 capsule benzonatate 100 mg capsule 100 mg PO TID PRN cough #14 caps 06/29/24 fluticasone propionate 50 2 spray intranasal DAILY #16 grams 06/29/24 mcg/actuation nasal spray,suspension (Flonase Allergy Relief) Allergies Allergy/AdvReac Type Severity Reaction Status Date / Time ceftriaxone [From ROCEPHIN] Allergy Intermediate ANAPHYLAXIS Verified 06/29/24 07:28 From ROCEPHIN Allergy Mild SWELLING Uncoded 06/29/24 07:28 Review of Systems 2 Review of Systems: Yes all other systems are reviewed and are negative Constitutional: Constitutional: Reports as per [facility] Past Medical History Attestation statement: The following information was validated with the patient. Source: old records reviewed Social History Social History Advance Directives: No Advance Directives Information Provided: No Do you have a plan to hurt others: No Plan Physical Exam 2 Vital Signs: Vital Signs: Last Vital Signs Temp 98.6 F 06/29/24 09:45 Pulse 87 06/29/24 09:45 Resp 16 06/29/24 09:45 BP 139/77 06/29/24 09:45 Pulse Ox 98 06/29/24 09:45 O2 Del Method Room Air 06/29/24 09:45 BMI result Body Mass Index 30.0 Const: General: cooperative, healthy appearing and no acute distress O rientation/consciousness: patient oriented x3 Limitations: no limitations HEENT: Head: Yes normal to inspection and Yes atraumatic Ears: hearing grossly normal bilaterally, external ears normal and TM's normal bilaterally General nose exam: Normal external nose present Face and sinus: Yes normal facial exam Mouth: Normal oral and palatal mucosa present and no drooling Throat: Yes posterior oropharynx normal, Yes tonsils normal, Yes uvula midline, No peritonsillar mass and No uvula laterally displaced Eyes: General: appearance normal, both eyes and all related structures E yelids: Yes eyelids normal Conjunctivae: conjunctivae normal Sclerae: s clerae normal Corneas: corneas normal Pupils: Equal, round and reactive pupils present EOM: EOMs intact bilaterally Direct Ophthalmoscopy: normal light reflex Neck: Neck: Yes normal visual inspection and Yes no meningeal signs Resp: Effort & Inspection: normal respiratory effort and no respiratory distress Auscultation: clear to auscultation bilaterally, no crackles, no rales, no rhonchi and no wheezes Cardio: Rate: regular rate Heart sounds: S1 normal heart sound present and S2 normal heart sound present GI: Inspection: Yes normal to inspection Palpation (GI): Soft to palpation, nontender, no guarding and not rigid Skin: Rashes: no rashes Wounds: no wounds Neuro: General: patient oriented x3, tone normal and no meningeal signs C ranial nerves: Yes CN's II-XII intact bilaterally and Yes Equal, round and reactive pupils present Gait exam (Neuro): Normal gait present Extrem: General: Yes normal to inspection Course Course Course Narrative: -labs reassuring. Viral studies and rapid strep negative XR chest 2V IMPRESSION: Unremarkable chest exam. Results discussed with patient including worrisome signs and symptoms and strict return precautions, and when to return to the emergency department. They verbalized understanding and feel safe for discharge at this time. Medical Decision Making Medical Decision Making MDM Narrative: 49-year-old female with a past medical history of pneumonia evaluated in our ED on 06/18/2024 finish course of Doxycycline/Azithromycin presenting to the ED complaining of continued congestion, sore throat, head pressure, rhinorrhea, erythematous eyes and fatigue x few weeks. On exam vital signs stable, NAD, nontoxic appearing, CTA, abdomen soft/nontender, oropharynx WNL. Eyes without conjunctival injection/crusting or drainage. Concern for viral illness vs sinusitis. Rule out continued/not improving pneumonia vs strep pharyngitis. No evidence of otitis, LOG GRADER/retropharyngeal abscess. Unlikely ACS or PE Plan: labs, CXR, viral studies, rapid strep Please refer to course for remaining clinical decision making, interpretation of labs/imaging results, and discussions with consultants and/or family members. Differential Diagnosis Differential Diagnoses: The differential diagnosis associated with the presentation includes As above Admission/Observation Consideration of admission/observation: Escalation of care including admission/observation considered Lab Data MDM Lab Attestation statement: I reviewed the patient's lab results. 06/29/24 07:39 06/29/24 07:39 Labs: Lab Results 06/29/24 06/29/24 Range/Units 07:39 07:59 WBC 10.0 (4.8-10.8) X10*3/uL RBC 4.69 (4.20-5.50) X10*6/uL Hgb 14.1 (12.0-16.0) g/dl Hct 40.6 (37.0-47.0) % MCV 86.6 (80.0-98.0) fL MCH 30.1 (27.0-33.0) pg MCHC 34.7 (31.0-35.0) g/dl RDW 12.7 (11.0-16.0) % Plt Count 162 (160-400) X10*3/uL MPV 11.2 (9.4-12.3) fL Immature Gran % (Auto) 0.5 H (0.0-0.4) % Neut % (Auto) 65.1 (45-73) % Lymph % (Auto) 25.0 (20-40) % Stewart % (Auto) 6.8 (2-11) % Eos % (Auto) 1.8 (0-4) % Baso % (Auto) 0.8 (0-2) % Lymph # (Auto) 2.5 (1.2-4.9) X10*3/uL Stewart # (Auto) 0.7 (0.1-1.2) X10*3/uL Eos # (Auto) 0.2 (0.0-0.4) X10*3/uL Baso # (Auto) 0.1 (0.0-0.2) X10*3/uL Abs Immat Gran (auto) 0.05 H (0.00-0.03) X10*3/uL Absolute Neuts (auto) 6.5 (2.0-8.3) x10*3/uL Absolute Nucleated RBC 0.000 (0.0-0.012) X10*3/uL Nucleated RBC % (auto) 0.0 (0.0-0.2) /100WBC Sodium 140 (135-145) mmol/L Potassium 4.1 (3.3-5.1) mmol/L Chloride 108 (96-108) mmol/L Carbon Dioxide 23 (22-29) mmol/L Anion Gap 13 (12-20) BUN 11 (9-16) mg/dL Creatinine 0.81 (0.5-1.4) mg/dL Estim Creat Clear Calc 86.7 Estimated GFR > 60 Random Glucose 101 (60-115) mg/dL Calcium 9.1 D (8.4-10.2) mg/dL Magnesium 2.1 (1.6-2.6) mg/dL Total Bilirubin 0.8 (0.0-1.0) mg/dL Direct Bilirubin 0.2 (0.0-0.5) mg/dL AST 23 (5-31) U/L ALT 24 (0-31) U/L Alkaline Phosphatase 78 (39-117) U/L Total Protein 6.6 (6.5-8.0) g/dL Albumin 3.9 (3.5-5.0) g/dL Influenza Type A (PCR) NEGATIVE (Negative) Influenza Type B (PCR) NEGATIVE (Negative) RSV RNA Qual (PCR) NEGATIVE (Negative) SARS-CoV-2 RNA (RT-PCR) NEGATIVE (Negative) S. pyogenes GrpA AMBROCIO Negative (Negative) Independent Interpretation I performed an independent interpretation of an: Plain X-Ray Radiology Impression Discussion of test interpretation with radiology: I have reviewed the radiologist's reading. External Record Review External record reviewed: Inpatient record, Office record, Outpatient record, Prior outpatient labs, Prior outpatient radiology, Primary care record and Outside ED record Tests considered The following testing was considered but not selected: As above Prescription Management I considered prescription management with: Pain Medication and Antibiotic Chronic Conditions Patient?s care impacted by: Other Social Determinants Patient?s care significantly limited by Social Determinants of Health including: Other Social Determinant of Health Discharge Plan Discharge Clinical Impression: Viral infection Patient Disposition: Home, Self-Care Instructions: Viral Syndrome (ED) Additional Instructions: Your blood work and chest are reassuring You tested negative for COVID, flu, RSV and rapid strep You likely have a virus Tessalon Perles for cough, take as needed Flonase as a nasal decongestant Please take Tylenol and ibuprofen as needed for body aches and headache Follow-up with your doctor Stay hydrated Rest Melatonin will aid with sleeping which is [id number] Prescriptions: New benzonatate 100 mg capsule 100 mg PO TID PRN (Reason: cough) Qty: 14 0RF fluticasone propionate [Flonase Allergy Relief] 50 mcg/actuation spray,suspension 2 spray intranasal DAILY Qty: 16 0RF Rx Instructions: administer into each nostril No Action meclizine 25 mg tablet 25 mg PO TID PRN (Reason: dizziness) Qty: 20 0RF doxycycline monohydrate 100 mg capsule 100 mg PO BID 7 Days Qty: 14 0RF azithromycin 250 mg tablet See Rx Instructions .ROUTE .COMPLEX Qty: 6 0RF Rx Instructions: For 250 mg dose pack: take 500 mg today (day 1), then 250 mg for 4 days (days 2-5) Referrals: Physician,None [Primary Care Provider] - Interventions: ED Discharge Assessment Last Done: 06/29/24 09:45 Discharge Date/Time: 06/29/24 09:46 Print Language: Indonesian
[2024-06-29 08:26] LABS: IDNOW Serial# 58CA691E; Strep A Nucleic Acid Negative (Negative)
[2024-06-29 08:34] LABS: Influenza A PCR NEGATIVE (Negative); Influenza B PCR NEGATIVE (Negative); Resp Syncy Virus RNA Qual PCR NEGATIVE (Negative); SARS COV2 PCR INHOUSE NEGATIVE (Negative)
[2024-06-29 09:15] LABS: Albumin Level 3.9 g/dL (3.5-5.0); Aspartate Amino Transferase 23 U/L (5-31); Bilirubin Direct 0.2 mg/dL (0.0-0.5); Bilirubin Total 0.8 mg/dL (0.0-1.0); Magnesium 2.1 mg/dL (1.6-2.6); Total Protein 6.6 g/dL (6.5-8.0)
[2024-06-29 09:39] LABS: Alanine Aminotransferase 24 U/L (0-31); Alkaline Phosphatase 78 U/L (39-117)
[2024-06-29 09:45] VITALS: BP 139/77; PULSE 87; RESP 16; TEMP 37; O2SAT 98
== END 2024-06-29 09:46 | disposition home or self-care (01) ==
PROVIDERS: Physician Assistant; Emergency Provider Emergency Medicine
DX: B34.9 Viral infection, unspecified (principal); J02.9 Acute pharyngitis, unspecified; Z03.818 Encounter for observation for suspected exposure to other biological agents ruled out; R05.9 Cough, unspecified
CPT/HCPCS: 0241U; 71046; 80048; 80076; 83735; 85025; 87651; 99282; 99283